=== PATIENT | male | born 1990 | race Caucasian/White ===

== ENCOUNTER 2020-11-21 12:32 | Emergency (ER) | payer SELFPAY ==
[~2020-11-21] VITALS: Ht 180.3 cm; Wt 90.7 kg
[2020-11-21 12:43] VITALS: BP 147/63
[2020-11-21] MEDS ORDERED: KETOROLAC 60 MG/2 ML VIAL IM ONE (14:10)
--- NOTE | 2020-11-21 14:58 | NUR ---
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 DENIES ANY HEAD TRAUMA. SKIN INTACT PT MEDICATED WITH TYLENOL NO PMH NKDA
[2020-11-21 15:20] VITALS: BP 138/70
--- NOTE | 2020-11-21 15:20 | NUR ---
EVALUATED, TREATED, AND D/C BY NAGI RODRIGUEZ. NO NURSING INTERVENTIONS NEEDED.
== END 2020-11-21 15:20 | disposition home or self-care (01) ==
LOC: MED 12:32
DX: S30.0XXA Contusion of lower back and pelvis, initial encounter (principal); S70.02XA Contusion of left hip, initial encounter; W18.39XA Other fall on same level, initial encounter; Y93.89 Activity, other specified; Y92.89 Other specified places as the place of occurrence of the external cause; Y99.8 Other external cause status
CPT/HCPCS: 72100; 73502; 96372; 99284; J1885